=== PATIENT | female | born 1995 | race African-American/Black ===

== ENCOUNTER 2017-09-06 12:09 | Emergency (ER) | payer SELFPAY ==
[~2017-09-06] VITALS: Ht 157.5 cm; Wt 55.0 kg
[2017-09-06 12:14] VITALS: BP 144/78; PULSE 88; RESP 12; TEMP 98.2; O2SAT 99
[2017-09-06] MEDS ORDERED: PERM5CRE11 TOPICAL (13:46)
[2017-09-06] MEDS ORDERED: PRED-503 PO (13:46)
--- NOTE | 2017-09-06 13:46 | PD ---
HPI Chief Complaint: Skin Problem Time Seen by Provider: 13:24 Travel History International Travel<30 days: No Contact w/Intl Traveler<30days: No Traveled to known affect area: No History of Present Illness HPI 21-year-old woman presents to the emergency room complaining of widespread pruritic rash starting over the past 2 days or so. History of eczema. She has not had similar eruptions in the past. No contact with dogs fleas or other animals. No change in sleeping quarters. No known sick contacts or people with similar problems. [place] in the [place]. Symptoms have been progressive and worsening since onset. History Past Medical History Narrative Medical Eczema Social History Tobacco Use: No Allergies-Medications (Allergen,Severity, Reaction): Coded Allergies: No Known Allergies (Unverified , 09/06/17) Review of Systems Except as stated in HPI: all other systems reviewed are Neg Physical Exam Narrative GENERAL: Well-appearing 21-year-old woman, no acute distress. SKIN: Focused skin assessment warm/dry. Scattered areas of eczematous rash in the back and neck and in the flexural creases of the elbows. Scattered throughout the upper and lower extremities, little bit on the back, and some on the neck and ears are n numerous pruritic small papules, no skin color changes, no vesicles pustules or draining lesions. No ulcerations. Numerous HEAD: Atraumatic. Normocephalic. EYES: Pupils equal and round. No scleral icterus. No injection or drainage. ENT: No nasal bleeding or discharge. Mucous membranes pink and moist. NECK: Trachea midline. No JVD. CARDIOVASCULAR: Regular rate and rhythm. No murmur appreciated. RESPIRATORY: No accessory muscle use. Clear to auscultation. Breath sounds equal bilaterally. GASTROINTESTINAL: Abdomen soft, non-tender, nondistended. Hepatic and splenic margins not palpable. MUSCULOSKELETAL: No obvious deformities. Data Data Last Documented VS Vital Signs Date Time Temp Pulse Resp B/P (MAP) Pulse Ox O2 Delivery O2 Flow Rate FiO2 09/06/17 12:14 98.2 88 12 144/78 (100) 99 MDM Medical Decision Making Medical Screen Exam Complete: Yes Emergency Medical Condition: Yes Differential Diagnosis Eczema, scabies, viral exanthem, other Narrative Course Medical decision making para 21-year-old woman with very pruritic papular rash. Etiology is unclear. Possibly scabies but this seems less likely. More likely papular eczema. Recommend follow-up with dermatology. She has been doing Benadryl and hydrocortisone as prescribed by her school clinic. Will recommend oral steroids, trial of Elimite, referral to dermatology. Diagnosis Primary Impression: Pruritic rash Patient Instructions: General Instructions Additional Instructions: Take prednisone as prescribed. Continue Benadryl as previously prescribed. Follow up with dermatology. Use Elimite cream as prescribed. Return to the emergency department for any new or worsening symptoms. Med/Other Pt SpecificInfo: Prescription(s) given Scripts Prednisone (Deltasone) 20 Mg Tab 20 MG PO BID for 7 Days, #14 TAB 0 Refills Prov: Herb Cuba MD 09/06/17 Permethrin Topical (Elimite Topical) 5% Cream 1 APPLIC TOPICAL ONCE for Scabies, #1 TUBE 0 Refills Prov: Herb Cuba MD 09/06/17 Disposition: 01 DISCHARGE HOME Condition: Stable Herb Cuba MD Sep 06, 2017 13:46
[2017-09-06 13:58] VITALS: BP 115/65
[2017-09-06] MEDS ORDERED: predniSONE 20 MG TAB PO ONE (14:00)
== END 2017-09-06 14:06 | disposition home or self-care (01) ==
LOC: NEPD 12:09
DX: L29.9 Pruritus, unspecified (principal); L30.9 Dermatitis, unspecified
CPT/HCPCS: 99283; J7512